=== PATIENT | male | born 1950 | race Caucasian/White ===

== ENCOUNTER 2020-09-21 09:54 | Observation (INO) | payer BC ==
[~2020-09-21] VITALS: Ht 182.9 cm; Wt 97.1 kg
--- NOTE | 2020-09-21 09:58 | NUR ---
Pt brought in by with c/o chest pain x30 minutes. Pt states he was carrying items up to his garage and the chest pain started with SOB. Pt is diaphoretic, cap refill <3, all other VSS He is A&Ox4, steady gait with no other complaints.
--- NOTE | 2020-09-21 10:00 | NUR ---
Placed in room 6 . Placed on cardiac technician, blood pressure machine and pulse oximeter. To gown for exam. Side rails up.
--- NOTE | 2020-09-21 10:02 | NUR ---
# 20 gauge angiocath placed to left forearm. Use of asceptic technique. Opsite placed over site. Blood return noted. Blood for lab drawn from site. Flushed with 10 cc of normal saline. No evidence of infiltration noted. Patient tolerated well.
--- NOTE | 2020-09-21 10:10 | NUR ---
ER at bedside examining patient.
[2020-09-21] MEDS ORDERED: ASPIRIN 325 MG TABLET PO ONE (10:15)
--- NOTE | 2020-09-21 10:15 | NUR ---
PO ASA given per md order.
[2020-09-21 10:22] VITALS: BP_SYST 129
[2020-09-21 10:28] LABS: BASOPHILS # (AUTO) 0.1 K/uL (0.0-0.2); BASOPHILS % (AUTO) 0.5 % (0.0-2.0); EOSINOPHILS # (AUTO) 0.1 K/uL (0.0-0.4); EOSINOPHILS % (AUTO) 1.3 % (0.0-4.0); HEMATOCRIT 41.2 % (36-54); HEMOGLOBIN 13.7 g/dL (14.0-18.0); LYMPHOCYTES # (AUTO) 2.3 K/uL (1.0-5.5); LYMPHOCYTES % (AUTO) 20.5 % (20.5-51.5); MEAN CORPUSCULAR HEMOGLOBIN 28 pg (27-31); MEAN CORPUSCULAR HGB CONC 33 % (32-36); MEAN CORPUSCULAR VOLUME 84 fL (79.0-98.0); MONOCYTES # (AUTO) 0.7 K/uL (0.0-1.0); MONOCYTES % (AUTO) 6.2 % (1.7-9.3); NEUTROPHILS # (AUTO) 8.1 K/uL (1.8-7.7); NEUTROPHILS % (AUTO) 71.5 % (40.0-70.0); PLATELET COUNT (AUTO) 240 K/uL (130-430); RED BLOOD CELL COUNT(AUTO) 4.93 MIL/uL (4.2-6.2); RED CELL DISTRIBUTION WIDTH 15.8 % (9.0-15.0); WHITE BLOOD COUNT (AUTO) 11.3 K/uL (4.8-10.8)
--- NOTE | 2020-09-21 10:33 | NUR ---
Pt resting in bed. No chest pain or sob at this time. Pain 0/0
[2020-09-21 10:36] LABS: ANION GAP 14 (5-15); CALCIUM 10.3 mg/dL (8.4-11.0); CHLORIDE 105 mmol/L (98-107); CREATININE 1.16 mg/dL (0.55-1.30); GLUCOSE 243 mg/dL (70-99); POTASSIUM 4.1 mmol/L (3.5-5.1); SODIUM SERUM 140 mmol/L (136-145); UREA NITROGEN, BLOOD 18 mg/dL (8-21)
[2020-09-21] MEDS ORDERED: LIP10 PO (10:40)
[2020-09-21] MEDS ORDERED: SITA1TAB6 PO (10:40)
[2020-09-21] MEDS ORDERED: CYAN500T47 PO (10:40)
[2020-09-21] MEDS ORDERED: LISI-209 PO (10:40)
--- NOTE | 2020-09-21 10:40 | NUR ---
Med rec complete
[2020-09-21 10:41] LABS: ALANINE AMINOTRANSFERASE 30 U/L (12-78); ALBUMIN 3.1 g/dL (3.4-4.8); ASPARTATE AMINOTRANSFERASE 35 U/L (10-37); LIPASE 102 U/L (73-393); TOTAL BILIRUBIN 1.1 mg/dL (0.0-1.0)
--- NOTE | 2020-09-21 10:42 | NUR ---
Notified of pt being admitted to hospital. Will call for any updated. Emilie Ponce- [phone]
--- NOTE | 2020-09-21 10:47 | NUR ---
covid swab complete
[2020-09-21] MEDS ORDERED: NITROGLYCERIN 0.4 MG TAB.SUBL SL ONE (11:15)
--- NOTE | 2020-09-21 11:17 | NUR ---
Pt with c/o chest pain 710 and abd pain 7/. NO SOB. MD aware. Will repeat EKG. BP 146 84 HR 67 02 95% on RA RR 20
--- NOTE | 2020-09-21 11:18 | NUR ---
repeat EKG done per md request.
--- NOTE | 2020-09-21 11:20 | NUR ---
NTG sublingual given per md req
[2020-09-21] MEDS ORDERED: MORPHINE 4 MG INJ. 4 MG/ML VIAL IVP ONE (11:45)
--- NOTE | 2020-09-21 11:52 | NUR ---
Admit orders received from Dr. Montaño, pt to go to Tele Obs, talked to charge nurse Bree, will call us back with bed assignment.
[2020-09-21] MEDS ORDERED: METOCLOPRAMIDE HCL 10 MG/2 ML VIAL IVP PRN (12:30)
[2020-09-21] MEDS ORDERED: ONDANSETRON HCL 4 MG/2 ML VIAL IVP PRN (12:30)
[2020-09-21] MEDS ORDERED: MORPHINE 4 MG INJ. 4 MG/ML VIAL IVP PRN (12:30)
[2020-09-21] MEDS ORDERED: MORPHINE 2 MG/ML INJ. SYRINGE IVP PRN (12:30)
[2020-09-21] MEDS ORDERED: ACETAMINOPHEN 325 MG TABLET PO PRN (12:30)
[2020-09-21] MEDS ORDERED: DEXTROSE 50% JECT 50 ML DISP.SYRIN IVP PRN (12:30)
[2020-09-21 12:42] LABS: CHOLESTEROL 110 mg/dL (<200); HDL CHOLESTEROL 30 mg/dL (>45); LDL CHOLESTEROL 66 mg/dL (<100); TRIGLYCERIDES 97 mg/dL (30-150)
--- NOTE | 2020-09-21 13:10 | NUR ---
Patient will be admitted to care of Dr. Montaño. Admitted to Tele unit. Will go to room 129B. Belongings list completed. Complete and up to date summary report printed. SBAR report to be given at bedside with opportunity for questions.
--- NOTE | 2020-09-21 13:30 | NUR ---
NOTE Pt arrived on floor at 1325 via gurney to room. Pt ambulated off the gurney and walked to bed in room. Pt oriented to room and nursing routines and procedures. Questions/concerns were answered at this time. Call light within reach.
[2020-09-21 13:45] VITALS: BP_SYST 121
--- NOTE | 2020-09-21 13:48 | NUR ---
CONSULTATION PAGED/CALLED Reason for Consultation: [] CHEST PAIN Person Who was Notified: [] MATT Consulting Physician: [] DR NOVA Biological Science Technician Specialty: [] CARDIO Ordering Physician: [] DR JUSTICE
--- NOTE | 2020-09-21 15:10 | NUR ---
Note Pt resting in bed and denies any needs at this time. Pt's tele unit was applied on admission to floor. IV in left hand intact and patent. Call light within reach.
[2020-09-21 16:00] VITALS: BP_SYST 122
[2020-09-21] MEDS ORDERED: ASPIRIN 81 MG TAB.CHEW PO ONE (16:30)
[2020-09-21] MEDS: INSULIN REGULAR, HUMAN 100 UNITS/ML, 10 ML VIAL (humuLIN R) SUBCUT PRN ×2 (16:35→23:41)
[2020-09-21] MEDS ORDERED: DIATR MEGLU/DIATRIZ SOD 30 ML SOLUTION PO ONE (17:05)
--- NOTE | 2020-09-21 17:45 | NUR ---
NOTE Pt's at bedside and pt is drinking contrast for CT of abdomen and pelvis. Pt will be NPO for Lexiscan test tomorrow am. Pt was instructed. Pt was seen and assessed by Dr Hopkins at bedside. Pt denies any chest pain/discomfort since admission to floor. Tele unit attached and intact. Call light within reach.
--- NOTE | 2020-09-21 19:00 | NUR ---
Note Pt off the floor via wheelchair to CT dept for CT of abdomen and pelvis. Pt was checke don q1' and PRN all shift for needs and care. Pt stable. No needs noted at this time. Call light within reach. Pt had abdominal discomfort after drinking the contrast. Had an episode of emesis in restroom. Pt's accompanied pt off floor to CT dept.
--- NOTE | 2020-09-21 19:15 | NUR ---
OPENING NOTES: Received patient report from morning shift rn. Patient in bed, AAOx4, breathing evenly and nonlabored on room air, HOB elevated, no s/s of distress. Patient has an IV on the L hand 20g, patent, benign, and flushing. Educated patient on plan of care, call light use. Fall/safety precaution. Will continue to monitor.
[2020-09-21 20:00] VITALS: BP_SYST 133
[2020-09-21] MEDS: PANTOPRAZOLE SODIUM 40 MG TAB PO SCH (20:29)
[2020-09-22] VITALS: BP_SYST 128
--- NOTE | 2020-09-22 | NUR ---
ROUNDS: Patient in bed, eyes closed, breathing evenly and nonlabored on room air, no s/s of distress. Will continue to monitor.
--- NOTE | 2020-09-22 06:33 | NUR ---
CLOSING NOTES: Patient in bed, AAOx4, breathing evenly and nonlabored on room air, HOB elevated, no s/s of distress. Patient has an IV on the L hand 20g, patent, benign, and flushing. Fall/safety precaution. All needs met at this time. Will continue to monitor and endorse care to morning shift rn .
[2020-09-22 06:57] LABS: BASOPHILS % (AUTO) 0.4 % (0.0-2.0); EOSINOPHILS # (AUTO) 0.1 K/uL (0.0-0.4); EOSINOPHILS % (AUTO) 0.5 % (0.0-4.0); HEMATOCRIT 39.4 % (36-54); LYMPHOCYTES # (AUTO) 1.3 K/uL (1.0-5.5); LYMPHOCYTES % (AUTO) 11.2 % (20.5-51.5); MEAN CORPUSCULAR HEMOGLOBIN 28 pg (27-31); MEAN CORPUSCULAR HGB CONC 33 % (32-36); MEAN CORPUSCULAR VOLUME 84 fL (79.0-98.0); MONOCYTES # (AUTO) 0.6 K/uL (0.0-1.0); MONOCYTES % (AUTO) 4.9 % (1.7-9.3); NEUTROPHILS # (AUTO) 9.6 K/uL (1.8-7.7); PLATELET COUNT (AUTO) 215 K/uL (130-430); RED BLOOD CELL COUNT(AUTO) 4.71 MIL/uL (4.2-6.2); RED CELL DISTRIBUTION WIDTH 15.5 % (9.0-15.0); WHITE BLOOD COUNT (AUTO) 11.6 K/uL (4.8-10.8)
[2020-09-22 08:00] VITALS: BP_SYST 132
[2020-09-22 08:03] LABS: ALANINE AMINOTRANSFERASE 67 U/L (12-78); AMYLASE 42 U/L (0-100); ANION GAP 8 (5-15); CALCIUM 10.7 mg/dL (8.4-11.0); CHLORIDE 104 mmol/L (98-107); GLUCOSE 172 mg/dL (70-99); LIPASE 114 U/L (73-393); POTASSIUM 4.5 mmol/L (3.5-5.1); SODIUM SERUM 139 mmol/L (136-145); UREA NITROGEN, BLOOD 16 mg/dL (8-21)
[2020-09-22 08:10] LABS: ASPARTATE AMINOTRANSFERASE 64 U/L (10-37)
--- NOTE | 2020-09-22 08:15 | NUR ---
Note Pt sitting up in bed watching television. Pt has been NPO since midnight. Pt informed his LEXISCAN test will be done between 12-1pm. No needs noted. Call light within reach.
[2020-09-22] MEDS ORDERED: metFORMIN HCL 500 MG TABLET PO ONE (08:45)
[2020-09-22] MEDS ORDERED: ATORVASTATIN 20 MG TABLET PO SCH (09:00)
[2020-09-22] MEDS ORDERED: ASPIRIN 81 MG TAB.CHEW PO SCH ×2 (09:00)
[2020-09-22] MEDS ORDERED: lisinopriL 5 MG TABLET PO SCH (09:00)
[2020-09-22] MEDS ORDERED: OMEP20TA20 PO (11:34)
[2020-09-22 12:07] VITALS: BP_SYST 136
--- NOTE | 2020-09-22 12:30 | NUR ---
Note Avery (for Lexiscan test at bedside to give contrast) at bedside at 1035am. Pt was picked up for LEXISCAN test via wheelchair at 11am. Pt stable and no chest discomfort noted at this time.
--- NOTE | 2020-09-22 13:25 | NUR ---
Note Pt went for 2nd part of test (LEXISCAN) at this time via wheelchair.
[2020-09-22] MEDS: PANTOPRAZOLE SODIUM 40 MG TAB PO SCH (13:41)
[2020-09-22 16:02] VITALS: BP_SYST 129
--- NOTE | 2020-09-22 16:25 | NUR ---
Note Pt returned from LEXISCAN procedure at 1340 and all 09am PO medications were given. Pt resting in bed and denies any needs at this time. Tele unit was given to monitor technician as pt has a possible discharge today. Dr Hopkins was called and requested that Cardiopulmonary dept be called for results of LEXISCAN.
--- NOTE | 2020-09-22 17:15 | NUR ---
Note Pt's OK=802. Pt stated he would just take the Glucophage 500mg PO as scheduled and did not want/need Regular Insulin at this time. Dr Montaño called and stated pt is cleared to be discharged home today. 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 Call light within reach.
[2020-09-22 17:27] VITALS: BP_SYST 127
[2020-09-22] MEDS ORDERED: ASPI-1393 PO (17:32)
[2020-09-22] MEDS ORDERED: metFORMIN HCL 500 MG TABLET PO SCH (18:00)
--- NOTE | 2020-09-22 18:38 | NUR ---
Note Pt sitting up in bed eating his dinner. No needs noted at this time. Call light within reach. Pt's IV to be dc'd and pt dressed in street clothes and has all belongings. Pt checked side table and drawers for belongings. Pt was checked on q1' and PRN for needs and care. Pt's bed in low position. Pt denies any chest pain/discomfort all shift. Call light within reach.
--- NOTE | 2020-09-22 19:00 | NUR ---
Note Pt off the floor via wheelchair to private car. Pt took all his belongings and discharge paperwork. Pt stable. Pt's accompanied pt to car.
[2020-09-23] MEDS ORDERED: REGADENOSON 0.4 MG/5 ML SYRINGE IVP ONE (12:30)
== END 2020-09-22 19:00 | disposition home or self-care (01) ==
LOC: SED 09:54 → STU 11:47
PROVIDERS: ADMIT Internal Medicine Hospice and Palliative Medicine; ATTEND Internal Medicine Hospice and Palliative Medicine
DX: R07.89 Other chest pain (principal); Z20.822 Contact with and (suspected) exposure to COVID-19; R10.9 Unspecified abdominal pain; I10 Essential (primary) hypertension; E11.9 Type 2 diabetes mellitus without complications; N40.0 Benign prostatic hyperplasia without lower urinary tract symptoms; Z87.891 Personal history of nicotine dependence; Z87.19 Personal history of other diseases of the digestive system; Z85.46 Personal history of malignant neoplasm of prostate
CPT/HCPCS: 36415 ×2; 71045; 74176; 76376; 78452; 80053 ×2; 80061; 82150; 82607; 82962 ×2; 83036; 83690 ×2; 83880 ×2; 84484 ×2; 85025 ×2; 85379; 87426; 93005 ×2; 93017; 93306; 96372; 96374; 96376; 99285; G0378 ×2; J2270; Q9964; J2785